=== PATIENT | female | born 1975 | race Caucasian/White ===

== ENCOUNTER 2021-01-15 03:05 | Inpatient (IN) | payer BC ==
[~2021-01-15] VITALS: Ht 167.6 cm; Wt 118.2 kg
[2021-01-15] MEDS ORDERED: LEVO75TA5 PO (03:10)
--- NOTE | 2021-01-15 03:17 | NUR ---
pt bib ems from [place]. pt was seen originally there a few days prior for sob, apparently came back yesterday due to expressive aphasia. pt appears to be having difficulty finding words. A&Ox2. CT was clear, only medication approx 500mls NS. pt labs showed undetectable TSH levels. pt does report neck pain, refused LBP at [facility]. pt placed on spo2/bp/ecg monitoring at this time. vss, slightly febrile at 99.9f. bed in lowest, rails engaged, call light on lap, wctm. roman rojas at for eval and poc.
[2021-01-15] MEDS ORDERED: LIOT25TA12 PO (03:37)
[2021-01-15] MEDS ORDERED: LIOT50TA5 PO (03:37)
[2021-01-15] MEDS ORDERED: NALTREXONE PO (03:41)
[2021-01-15] MEDS ORDERED: ACETAMINOPHEN 500 MG TABLET ONE (03:56)
[2021-01-15] MEDS ORDERED: LIDOCAINE-MPF 1%, 5ML ONE ×3 (03:58→11:01)
[2021-01-15] MEDS ORDERED: ACETAMINOPHEN 500 MG TABLET PO ONE (04:00)
[2021-01-15] MEDS ORDERED: LORazepam 2 MG/ML, 1ML ONE (04:08)
[2021-01-15] MEDS ORDERED: LIDOCAINE-MPF 2% ,5ML ONE (04:27)
[2021-01-15] MEDS ORDERED: LORazepam 2 MG/ML, 1ML IVPush ONE (04:30)
[2021-01-15] MEDS ORDERED: COQ-10 PO (04:56)
[2021-01-15] MEDS ORDERED: BIOTIN PO (04:56)
[2021-01-15] MEDS ORDERED: ALLERGY MED PO (04:56)
[2021-01-15] MEDS ORDERED: MAGNESIUM PO (04:56)
[2021-01-15] MEDS ORDERED: POTASSIUM PO (04:56)
[2021-01-15] MEDS ORDERED: MULT-257 PO (04:56)
[2021-01-15] MEDS ORDERED: VITEX PO (04:56)
[2021-01-15] MEDS ORDERED: [UNRECOGNIZED DRUG - OTHER] PO (04:58)
[2021-01-15] MEDS ORDERED: VITAMIN C (04:58)
[2021-01-15] MEDS ORDERED: DANDELION ROOT (04:58)
[2021-01-15] MEDS ORDERED: VITAMIN D3 (04:58)
[2021-01-15] MEDS ORDERED: ZINC ACETATE PO (04:58)
[2021-01-15] MEDS ORDERED: BLACK SEED OIL (04:58)
[2021-01-15] MEDS ORDERED: [UNRECOGNIZED DRUG - OTHER] (04:58)
[2021-01-15] MEDS ORDERED: ONDANSETRON 2MG/ML, 2ML IVPush PRN (05:00)
[2021-01-15] MEDS ORDERED: BISACODYL 10 MG SUPP PR PRN (05:00)
[2021-01-15] MEDS: SODIUM CHLORIDE 0.9% 1,000 ML IV SCH ×2 (05:00→15:00)
[2021-01-15] MEDS ORDERED: PROMETHAZINE 25 MG/ML, 1ML IM PRN (05:00)
[2021-01-15] MEDS ORDERED: DOCUSATE 100 MG CAPSULE PO PRN (05:00)
[2021-01-15] MEDS ORDERED: POLYETHYLENE GLYCOL 17 GM PACKET PO PRN (05:00)
[2021-01-15] MEDS ORDERED: hydrALAzine 20 MG/ML, 1ML IVPush PRN (05:00)
[2021-01-15] MEDS ORDERED: POTASSIUM CHLORIDE 40 MEQ in SODIUM CHLORIDE 0.9% 500 ML IV ONE (05:00)
[2021-01-15] MEDS ORDERED: ACYCLOVIR 700 MG in SODIUM CHLORIDE 0.9% 100 ML IV ONE (05:00)
[2021-01-15] MEDS ORDERED: ONDANSETRON ODT 4 MG PO PRN (05:00)
--- NOTE | 2021-01-15 05:11 | NUR ---
REPORT CALLED TO LUCERO KEE, PT CARE TO BE TRANSFERRED UPON ARRIVAL TO THE FLOOR. PT NAD, NO CHANGE IN CONDITION, RESTING ON MARISSA, SISTER AT BS. BED IN LOWEST, RAILS ENGAGED, CALL LIGHT ON LAP, [facility].
--- NOTE | 2021-01-15 05:23 | NUR ---
PT FAMILY REQUESTS WE CALL IF CONSENTS ARE NEEDED FOR PROCEDURES. PT ALREADY CONSENTED TO [facility] WITH IR, CONSENT SIGNED.
--- NOTE | 2021-01-15 05:24 | NUR ---
CELL: [phone] HOME: [phone]
--- NOTE | 2021-01-15 05:25 | NUR ---
PT FAMILY REPORTS SHE DOES HAVE METAL IN LEFT WRIST DUE TO SURGERY IN PAST.
[2021-01-15 05:41] VITALS: BP 114/72
[2021-01-15 05:44] LABS: FREE T4 (FREE THYROXINE) 1.04 ng/dL (0.76-1.46)
[2021-01-15 06:31] LABS: MEAN CORPUSCULAR HEMOGLOBIN 28.8 pg (27.0-34.8); MEAN CORPUSCULAR HGB CONC 34.9 g/dL (32.4-35.8); PLATELET COUNT 269 x10^3/uL (130-400); RED BLOOD COUNT 4.47 x10^6/uL (3.82-5.3); RED CELL DISTRIBUTION WIDTH 16.5 % (9.6-15.2)
[2021-01-15 06:32] LABS: INTERNATIONAL NORMALIZED RATIO 1.33 (0.93-1.1); PROTHROMBIN TIME 14.1 Seconds (9.6-11.5)
[2021-01-15 06:34] LABS: ALBUMIN 3.3 g/dL (3.4-5.0); ANION GAP 6 mmol/L (5-15); CALCIUM 8.4 mg/dL (8.5-10.1); CHLORIDE 102 mmol/L (98-107); CREATININE 0.53 mg/dL (0.55-1.02)
[2021-01-15 06:54] VITALS: BP 136/73
[2021-01-15 08:00] LABS: MD YES
[2021-01-15 08:03] LABS: BAND#(MANUAL) 0.11 x10^3/uL; BANDS%(MANUAL) 2 % (0-7); MONOS#(MANUAL) 0.97 x10^3/uL (0.3-2.7); MONOS% (MANUAL) 17 % (2-9); SEG#(MANUAL) 2.11 x10^3/uL (1.8-6.8); SEGS% (MANUAL) 37 % (42-75)
[2021-01-15 08:05] LABS: LYMPHS% (MANUAL) 39 % (22-44); OTHER CELLS # (MANUAL) 0.11 x10^3/uL (0-0); OTHER CELLS % (MANUAL) 2 % (0-0); REACTIVE LYMPHS # (MANUAL) 0.17 x10^3/uL (0-0); REACTIVE LYMPHS % (MANUAL) 3 % (0-0)
[2021-01-15 08:06] LABS: <PLATELET ESTIMATE> ADEQUATE; <PLT MORPHOLOGY> NORMAL PLT MORPH; LYMPH#(MANUAL) 2.22 x10^3/uL (1-3.4)
[2021-01-15 08:07] LABS: ANISOCYTOSIS 1+
[2021-01-15 12:50] VITALS: BP 116/77
[2021-01-15 12:52] LABS: GLUCOSE, CSF 29 mg/dL (40-80); TOTAL PROTEIN,CSF 136 mg/dL (15-45)
[2021-01-15] MEDS: ACYCLOVIR 700 MG in SODIUM CHLORIDE 0.9% 100 ML IV SCH ×2 (14:19→22:55)
[2021-01-15 14:46] LABS: MICROSCOPIC NOT IND
[2021-01-15] MEDS ORDERED: LIOTHYRONINE 25 MCG TABLET PO SCH ×2 (16:56→21:00)
[2021-01-15] MEDS: ENOXAPARIN 40 MG/0.4 ML SQ SCH (17:58)
[2021-01-15] MEDS ORDERED: ENOXAPARIN 40 MG/0.4 ML SQ SCH (18:00)
[2021-01-15 19:19] VITALS: BP 113/80
[2021-01-16] VITALS (8 sets, daily range): BP systolic 83–118; BP diastolic 44–76
[2021-01-16 05:21] LABS: BASOPHILS % (AUTO) 1 % (0-1); EOSINOPHILS % (AUTO) 0 % (1-7); LYMPHOCYTES % (AUTO) 42 % (22-44); MEAN CORPUSCULAR HEMOGLOBIN 28.9 pg (27.0-34.8); MEAN CORPUSCULAR HGB CONC 34.7 g/dL (32.4-35.8); MEAN PLATELET VOLUME 8.9 fL (7.4-10.4); MONOCYTES % (AUTO) 22 % (2-9); NEUTROPHILS % (AUTO) 35 % (42-75); PLATELET COUNT 223 x10^3/uL (130-400); RED CELL DISTRIBUTION WIDTH 16.6 % (9.6-15.2)
[2021-01-16 05:22] LABS: MD NO
[2021-01-16 05:25] LABS: ALANINE AMINOTRANSFERASE 23 U/L (12-78); ALBUMIN 2.9 g/dL (3.4-5.0); ANION GAP 7 mmol/L (5-15); CALCIUM 8.4 mg/dL (8.5-10.1); CHLORIDE 104 mmol/L (98-107)
[2021-01-16 05:28] LABS: ALKALINE PHOSPHATASE 49 U/L (45-117); BILIRUBIN,TOTAL 0.4 mg/dL (0.2-1.0); CHOL/HDL RATIO 2.6; CHOLESTEROL, TOTAL 121 mg/dL (140-239); CREATININE 0.61 mg/dL (0.55-1.02); HDL CHOL % 38 % (28-40); HDL CHOLESTEROL (DIRECT) 46 mg/dL (40-60); LDL CHOLESTEROL,CALCULATED 62 mg/dL (54-169); LDL/HDL RATIO 1.3 (0.5-3.0); TOTAL PROTEIN 5.9 g/dL (6.4-8.2); TRIGLYCERIDES 67 mg/dL (50-200); VLDL CHOLESTEROL 13 mg/dL (0-25)
[2021-01-16] MEDS ORDERED: LIOTHYRONINE 25 MCG TABLET PO SCH ×2 (06:00→09:00)
[2021-01-16] MEDS ORDERED: LEVOTHYROXINE 125 MCG TABLET PO SCH ×2 (06:00→09:00)
[2021-01-16] MEDS: MULTIVITAMIN 1 TABLET PO SCH (07:57)
[2021-01-16] MEDS: ACETAMINOPHEN 325 MG TABLET PO PRN ×2 (07:57→18:01)
[2021-01-16] MEDS: ENOXAPARIN 40 MG/0.4 ML SQ SCH ×2 (07:57→20:36)
[2021-01-16] MEDS: ACYCLOVIR 700 MG in SODIUM CHLORIDE 0.9% 100 ML IV SCH ×2 (08:23→18:01)
[2021-01-16] MEDS: LIOTHYRONINE HOMEMEDPO SCH ×2 (10:18→15:32)
[2021-01-16] MEDS: LEVOTHYROXINE HOMEMEDPO SCH (10:18)
[2021-01-16] MEDS: [UNRECOGNIZED DRUG - OTHER] HOMEMEDPO SCH (10:18)
[2021-01-16] MEDS ORDERED: GADOTERATE 10 MMOL/20 ML VIAL ONE (14:45)
[2021-01-16] MEDS ORDERED: GADOTERATE 5 MMOL/10 ML VIAL ONE (14:45)
[2021-01-16] MEDS: [UNRECOGNIZED DRUG - OTHER] HOMEMEDPO SCH (15:32)
[2021-01-16] MEDS: BUTALB/APAP/CAFFEINE 50MG/325MG/40MG PO PRN (20:36)
[2021-01-17] MEDS: ACYCLOVIR 700 MG in SODIUM CHLORIDE 0.9% 100 ML IV SCH ×3 (00:31→17:30)
[2021-01-17 02:30] VITALS: BP 102/66
[2021-01-17 05:11] LABS: BASOPHILS % (AUTO) 1 % (0-1); EOSINOPHILS % (AUTO) 0 % (1-7); LYMPHOCYTES % (AUTO) 42 % (22-44); MEAN CORPUSCULAR HGB CONC 34.5 g/dL (32.4-35.8); MEAN PLATELET VOLUME 8.4 fL (7.4-10.4); MONOCYTES % (AUTO) 18 % (2-9); NEUTROPHILS % (AUTO) 39 % (42-75); PLATELET COUNT 226 x10^3/uL (130-400); RED BLOOD COUNT 4.07 x10^6/uL (3.82-5.3); RED CELL DISTRIBUTION WIDTH 16.7 % (9.6-15.2)
[2021-01-17 05:12] LABS: ANION GAP 4 mmol/L (5-15); CALCIUM 8.7 mg/dL (8.5-10.1); CHLORIDE 108 mmol/L (98-107); CREATININE 0.51 mg/dL (0.55-1.02)
[2021-01-17 05:33] LABS: MD NO
[2021-01-17] MEDS: LIOTHYRONINE HOMEMEDPO SCH ×2 (07:00→13:42)
[2021-01-17] MEDS: [UNRECOGNIZED DRUG - OTHER] HOMEMEDPO SCH (07:00)
[2021-01-17] MEDS: LEVOTHYROXINE HOMEMEDPO SCH (07:00)
[2021-01-17 07:31] VITALS: BP 95/58
[2021-01-17] MEDS: BUTALB/APAP/CAFFEINE 50MG/325MG/40MG PO PRN ×2 (08:46→21:16)
[2021-01-17] MEDS: ACETAMINOPHEN 325 MG TABLET PO PRN (08:47)
[2021-01-17] MEDS: MULTIVITAMIN 1 TABLET PO SCH (08:47)
[2021-01-17] MEDS: ENOXAPARIN 40 MG/0.4 ML SQ SCH ×2 (08:49→21:23)
[2021-01-17 12:58] VITALS: BP 99/63
[2021-01-17] MEDS: [UNRECOGNIZED DRUG - OTHER] HOMEMEDPO SCH (13:42)
[2021-01-18] MEDS: ACYCLOVIR 700 MG in SODIUM CHLORIDE 0.9% 100 ML IV SCH ×2 (00:34→08:43)
[2021-01-18 01:33] VITALS: BP 108/68
[2021-01-18] MEDS: LEVOTHYROXINE HOMEMEDPO SCH (05:49)
[2021-01-18] MEDS: LIOTHYRONINE HOMEMEDPO SCH ×2 (05:50→14:25)
[2021-01-18] MEDS: [UNRECOGNIZED DRUG - OTHER] HOMEMEDPO SCH (05:50)
[2021-01-18 06:15] LABS: ALBUMIN 2.9 g/dL (3.4-5.0); ANION GAP 4 mmol/L (5-15); CALCIUM 8.3 mg/dL (8.5-10.1); CHLORIDE 110 mmol/L (98-107)
[2021-01-18 06:19] LABS: ALANINE AMINOTRANSFERASE 23 U/L (12-78); ALKALINE PHOSPHATASE 46 U/L (45-117); BILIRUBIN,TOTAL 0.2 mg/dL (0.2-1.0); CREATININE 0.52 mg/dL (0.55-1.02); TOTAL PROTEIN 5.8 g/dL (6.4-8.2)
[2021-01-18 06:28] LABS: BASOPHILS % (AUTO) 0 % (0-1); EOSINOPHILS % (AUTO) 1 % (1-7); LYMPHOCYTES % (AUTO) 42 % (22-44); MD NO; MEAN CORPUSCULAR HEMOGLOBIN 28.8 pg (27.0-34.8); MEAN CORPUSCULAR HGB CONC 34.3 g/dL (32.4-35.8); MEAN PLATELET VOLUME 8.7 fL (7.4-10.4); MONOCYTES % (AUTO) 14 % (2-9); NEUTROPHILS % (AUTO) 43 % (42-75); PLATELET COUNT 186 x10^3/uL (130-400); RED BLOOD COUNT 3.94 x10^6/uL (3.82-5.3); RED CELL DISTRIBUTION WIDTH 16.7 % (9.6-15.2)
[2021-01-18] MEDS ORDERED: POTASSIUM CHLORIDE 10% 40 MEQ/30 ML UDC PO ONE (06:30)
[2021-01-18 07:31] VITALS: BP 110/64
[2021-01-18] MEDS: MULTIVITAMIN 1 TABLET PO SCH (08:43)
[2021-01-18] MEDS: ENOXAPARIN 40 MG/0.4 ML SQ SCH (08:46)
[2021-01-18 12:13] VITALS: BP 104/69
[2021-01-18] MEDS: [UNRECOGNIZED DRUG - OTHER] HOMEMEDPO SCH (14:25)
[2021-01-18] MEDS ORDERED: ENOXAPARIN 30 MG/0.3 ML SQ SCH (18:00)
[2021-01-19 16:37] LABS: ANA SCREEN POSITIVE (Negative); ANA TITER MIXED
[2021-01-19 16:38] LABS: ANTI-NUCLEAR ANTIBODY PATTERN MIXED
== END 2021-01-18 18:28 | disposition home or self-care (01) | DRG 98 ==
LOC: ED 05:00 → EDIP 05:16 → 4EST 05:29
PROVIDERS: ADMIT Internal Medicine; ATTEND Internal Medicine
PROC: 009U3ZX Drainage of Spinal Canal, Percutaneous Approach, Diagnostic (ICD-10-PCS; principal; 2021-01-15)
DX: A86 Unspecified viral encephalitis (principal); G93.40 Encephalopathy, unspecified; R47.01 Aphasia; Z68.41 Body mass index [BMI] 40.0-44.9, adult; Z88.8 Allergy status to other drugs, medicaments and biological substances; Z91.018 Allergy to other foods; E03.9 Hypothyroidism, unspecified; E66.01 Morbid (severe) obesity due to excess calories; Z86.61 Personal history of infections of the central nervous system; E87.6 Hypokalemia; N81.4 Uterovaginal prolapse, unspecified; N89.8 Other specified noninflammatory disorders of vagina
CPT/HCPCS: 36415; 89051; 99285; A9575; 62328; 70553; 76830; 80048; 80053; 80061; 81003; 82040; 82945; 83036; 83735; 84100; 84157; 84439; 84443; 84481; 85025; 85610; 85651; 86038; 86039; 86140; 86592; 86622; 86638; 87070; 87205; 87252; 87529; 87798; 87899; G0378; J0133; J1650; J3480; 92523-GN; J2060; J7030; J7040